=== PATIENT | female | born 1970 ===

== ENCOUNTER 2024-02-01 13:32 | Inpatient (IN) | payer MEDICAID, OTHER ==
[~2024-02-01] VITALS: Ht 154.9 cm; Wt 60.0 kg
[2024-02-01] MEDS ORDERED: FAMO20 PO (14:13)
[2024-02-01 14:40] LABS: COVID AG,FIA SOURCE NASAL SWAB
[2024-02-01 14:45] LABS: BASOPHILS % (AUTO) 0.5 % (0.0-2.0); EOSINOPHILS % (AUTO) 2.1 % (1.0-6.0); HEMOGLOBIN 13.9 g/dL (12.0-16.0); LYMPHOCYTES # (AUTO) 2.6 K/uL (1.0-4.8); LYMPHOCYTES % (AUTO) 31.9 % (22.0-44.0); MEAN CORPUSCULAR HEMOGLOBIN 27.4 pg (26.0-34.0); MEAN CORPUSCULAR HGB CONC 30.8 G/dL (31.0-37.0); MEAN CORPUSCULAR VOLUME 89 fL (80-100); MONOCYTES # (AUTO) 0.3 K/uL (0.1-1.0); MONOCYTES % (AUTO) 3.5 % (2.0-9.0); NEUTROPHILS # (AUTO) 5.1 K/uL (1.8-7.7); PLATELET COUNT (AUTO) 299 K/uL (150-450); RED BLOOD CELL COUNT(AUTO) 5.05 MIL/uL (4.00-5.20); RED CELL DISTRIBUTION WIDTH 20.1 % (11.5-14.5); WHITE BLOOD COUNT (AUTO) 8.3 K/uL (4.5-11.0)
[2024-02-01 14:46] LABS: PH,URINE DRUG SCREEN 6.5 (5.0-8.0)
[2024-02-01 14:53] LABS: ALCOHOL, URINE DRUG SCREEN NEGATIVE (NEGATIVE); AMPHET/METH SCREEN,URINE NEGATIVE (NEGATIVE); BARBITURATE SCREEN, URINE NEGATIVE (NEGATIVE); BENZODIAZEPINES SCREEN,URINE NEGATIVE (NEGATIVE); CANNABINOID SCREEN,URINE NEGATIVE (NEGATIVE); COCAINE SCREEN,URINE NEGATIVE (NEGATIVE); METHADONE SCREEN, URINE NEGATIVE (NEGATIVE); OPIATE SCREEN,URINE NEGATIVE (NEGATIVE); PHENCYCLIDINE SCREEN,URINE NEGATIVE (NEGATIVE)
[2024-02-01 14:56] LABS: ALCOHOL, BLOOD (SERUM) < 3 mg/dL (0-10)
[2024-02-01 15:04] LABS: CHLORIDE 112 mmol/L (98-107); POTASSIUM 5.1 mmol/L (3.5-5.1); SARS-COV2 (COVID) ANTIGEN,FIA Negative (Negative); SODIUM SERUM 143 mmol/L (136-145)
[2024-02-01 15:14] LABS: ANION GAP 5 mmol/L (8-16); CALCIUM, TOTAL 10.9 mg/dL (8.8-10.5); CARBON DIOXIDE 26 mmol/L (22-29); CREATININE 0.66 mg/dL (0.60-1.30); GLOMERULAR FILTR. RATE CALC > 60 mL/min (>60); GLUCOSE,RANDOM 96 mg/dL (70-110); UREA NITROGEN, BLOOD 15 mg/dL (7-18)
[2024-02-02] MEDS: ZOLPIDEM TARTRATE 10 MG TABLET PO PRN (01:36)
[2024-02-02] MEDS: HALOPERIDOL 5 MG TABLET PO PRN (01:36)
[2024-02-02] MEDS: LORazepam 2 MG TABLET PO PRN (01:36)
[2024-02-03] MEDS: LORazepam 2 MG/ML VIAL IM ONE (23:21)
[2024-02-03] MEDS: HALOPERIDOL LACTATE 5 MG/ML VIAL IM ONE (23:21)
[2024-02-04 00:43] VITALS: RESP 18; TEMP 98
[2024-02-04] MEDS ORDERED: PNEUMOCOCCAL VACCINE POLYVALENT 0.5 ML SYRINGE [PPSV23] IM. ONE (02:45)
[2024-02-04 12:00] VITALS: RESP 17; TEMP 97.6
[2024-02-04] MEDS ORDERED: OMEPRAZOLE 20 MG CAPSULE PO PRN (12:00)
[2024-02-04] MEDS ORDERED: BACITRACIN 28 GM OINTMENT TP PRN (12:00)
[2024-02-04] MEDS ORDERED: CloNIDine HCL 0.1 MG TABLET PO PRN (12:00)
[2024-02-04] MEDS ORDERED: MAG HYDROX/ALUMINUM HYD/SIMETH ES 30 ML SUSPENSION UDCUP PO PRN (12:00)
[2024-02-04] MEDS ORDERED: BENZOCAINE/MENTHOL LOZENGE PO PRN (12:00)
[2024-02-04] MEDS ORDERED: ALBUTEROL SULFATE HFA 90 MCG/PUFF 8 GM INHALER IH PRN (12:00)
[2024-02-04] MEDS ORDERED: MAGNESIUM HYDROXIDE SUSPENSION 30 ML UDCUP PO PRN (12:00)
[2024-02-04] MEDS ORDERED: IBUPROFEN 600 MG TABLET PO PRN (12:00)
[2024-02-04] MEDS ORDERED: ACETAMINOPHEN 325 MG TABLET PO PRN (12:00)
[2024-02-04] MEDS ORDERED: DOCUSATE SODIUM 100 MG CAPSULE PO PRN (12:00)
[2024-02-04] MEDS ORDERED: ONDANSETRON 4 MG TABLET PO PRN (12:00)
[2024-02-04] MEDS ORDERED: PETROLATUM,WHITE 28 GM JELLY TP PRN (12:00)
[2024-02-04 14:55] VITALS: BP 95/62; PULSE 104; RESP 18; TEMP 98
[2024-02-05 08:28] VITALS: BP 98/67; PULSE 76; RESP 17; TEMP 98.1
[2024-02-05] MEDS: FAMOTIDINE 20 MG TABLET PO SCH (10:11)
[2024-02-05] MEDS: ETHYL ALCOHOL 62% ANTISEPTIC NASAL SANITIZER 0.6 ML AMPUL NASAL SCH (11:16)
[2024-02-05 21:07] VITALS: BP 105/74; PULSE 98; RESP 18; TEMP 98; O2SAT 97
[2024-02-06 09:16] VITALS: RESP 19
[2024-02-06 21:10] VITALS: BP 102/73; PULSE 74; RESP 18; TEMP 97.1; O2SAT 97
[2024-02-07 08:25] VITALS: BP 121/75; PULSE 78; RESP 18; TEMP 98; O2SAT 98
[2024-02-07 21:23] VITALS: BP 94/69; PULSE 83; RESP 18; TEMP 98; O2SAT 98
[2024-02-08 09:16] VITALS: BP 105/58; PULSE 76; RESP 19; TEMP 98.1; O2SAT 95
[2024-02-08 21:08] VITALS: BP 105/67; PULSE 97; RESP 18; TEMP 98; O2SAT 96
[2024-02-09 09:29] VITALS: BP 81/51; PULSE 84; RESP 18; TEMP 97.5; O2SAT 98
[2024-02-09 21:36] VITALS: BP 98/65; PULSE 77; RESP 18; TEMP 97; O2SAT 96
[2024-02-10 09:14] VITALS: BP 109/60; PULSE 86; RESP 18; TEMP 97.4; O2SAT 95
[2024-02-10 20:58] VITALS: BP 134/79; PULSE 84; RESP 18; TEMP 98.4; O2SAT 97
[2024-02-11 09:29] VITALS: BP 103/53; PULSE 63; RESP 18; TEMP 97; O2SAT 98
[2024-02-11 20:59] VITALS: BP 107/65; PULSE 82; RESP 17; TEMP 98; O2SAT 99
[2024-02-12 13:01] VITALS: RESP 18
[2024-02-12 20:11] VITALS: BP 102/71; PULSE 84; RESP 16; TEMP 97.5; O2SAT 96
[2024-02-13] MEDS: CHLORHEXIDINE GLUCONATE 2% TOWELETTE [2'S/6'S] TP SCH (11:29)
[2024-02-13 13:24] VITALS: BP 93/67; PULSE 87; RESP 17; TEMP 97.5; O2SAT 95
[2024-02-13 20:55] VITALS: BP 100/67; PULSE 80; RESP 18; TEMP 97.8; O2SAT 95
[2024-02-14 10:22] VITALS: BP 92/65; PULSE 79; RESP 17; TEMP 97.6; O2SAT 95
[2024-02-14 20:51] VITALS: BP 95/62; PULSE 76; RESP 18; TEMP 97.3; O2SAT 76
[2024-02-15 09:25] VITALS: RESP 18
[2024-02-15 21:38] VITALS: BP 90/70; PULSE 76; RESP 18; TEMP 97; O2SAT 97
[2024-02-16 08:58] VITALS: BP 100/68; PULSE 78; RESP 17; TEMP 97; O2SAT 98
[2024-02-16 20:16] VITALS: BP 120/63; PULSE 83; RESP 18; TEMP 98; O2SAT 98
[2024-02-17 08:30] VITALS: BP 103/78; PULSE 71; RESP 19; TEMP 97.3; O2SAT 97
[2024-02-17 20:20] VITALS: BP 117/79; PULSE 74; RESP 18; TEMP 97.5; O2SAT 100
[2024-02-18 08:30] VITALS: BP 114/62; PULSE 70; RESP 18; TEMP 96.9; O2SAT 97
[2024-02-18 21:27] VITALS: BP 98/71; PULSE 67; RESP 18; TEMP 97.1; O2SAT 95
[2024-02-19 12:56] VITALS: BP 109/62; PULSE 86; RESP 18; TEMP 97.7; O2SAT 97
[2024-02-19 21:18] VITALS: BP 95/63; PULSE 71; RESP 18; TEMP 97.7; O2SAT 97
[2024-02-20 08:46] VITALS: BP 102/61; PULSE 71; RESP 18; TEMP 97.5; O2SAT 96
[2024-02-20 21:00] VITALS: BP 102/77; PULSE 77; RESP 18; TEMP 97.9; O2SAT 97
[2024-02-21 08:50] VITALS: BP 99/69; PULSE 70; RESP 18; TEMP 97.9; O2SAT 98
[2024-02-21 20:29] VITALS: BP 121/75; PULSE 88; RESP 18; TEMP 97.7; O2SAT 96
[2024-02-22 08:30] VITALS: BP 90/59; PULSE 77; RESP 18; TEMP 97.5; O2SAT 96
[2024-02-22 21:03] VITALS: BP 96/70; PULSE 65; RESP 18; TEMP 97.4; O2SAT 96
[2024-02-23 09:17] VITALS: BP 96/58; PULSE 65; RESP 18; TEMP 96.6; O2SAT 97
[2024-02-23 22:02] VITALS: BP 96/54; PULSE 70; RESP 18; TEMP 97.4
[2024-02-24 10:19] VITALS: RESP 18
[2024-02-24 20:17] VITALS: BP 98/63; PULSE 80; RESP 19; TEMP 97.9; O2SAT 98
[2024-02-25 21:01] VITALS: BP 97/58; PULSE 61; RESP 19; TEMP 97.4; O2SAT 99
[2024-02-26 12:56] VITALS: BP 115/80; PULSE 78; RESP 17; TEMP 98.1; O2SAT 97
[2024-02-26 22:09] VITALS: BP 120/74; PULSE 68; RESP 18; TEMP 96.7; O2SAT 98
[2024-02-27 22:17] VITALS: BP 91/61; PULSE 71; RESP 18; TEMP 98.7; O2SAT 95
[2024-02-28 09:10] VITALS: BP 99/73; PULSE 77; RESP 18; TEMP 97.5; O2SAT 95
[2024-02-28 21:12] VITALS: BP 94/56; PULSE 76; RESP 18; TEMP 97.8; O2SAT 96
[2024-02-29 08:28] VITALS: BP 107/84; PULSE 68; RESP 18; TEMP 96.6; O2SAT 100
[2024-02-29 20:21] VITALS: BP 105/63; PULSE 70; RESP 17; TEMP 97.1; O2SAT 96
[2024-02-29 20:23] VITALS: BP 105/63; PULSE 70; RESP 18; TEMP 97.1; O2SAT 96
[2024-03-01 09:04] VITALS: BP 93/62; PULSE 70; RESP 19; TEMP 97.4; O2SAT 96
[2024-03-01 21:22] VITALS: BP 87/59; PULSE 68; RESP 18; TEMP 97.6; O2SAT 96
[2024-03-02 20:19] VITALS: BP 105/73; PULSE 73; RESP 18; TEMP 97.9; O2SAT 98
[2024-03-03 10:27] VITALS: BP 110/70; PULSE 80; RESP 17; TEMP 98; O2SAT 98
[2024-03-03 20:44] VITALS: RESP 18
[2024-03-04 08:30] VITALS: BP 99/56; PULSE 74; RESP 17; TEMP 97.5; O2SAT 94
[2024-03-04 20:41] VITALS: BP 108/77; PULSE 77; RESP 18; TEMP 97.3; O2SAT 97
[2024-03-05 09:13] VITALS: BP 109/73; PULSE 70; RESP 18; TEMP 97.3; O2SAT 96
[2024-03-05 21:08] VITALS: BP 139/84; PULSE 74; RESP 18; TEMP 97.5; O2SAT 97
[2024-03-06 09:24] VITALS: BP 121/75; PULSE 79; RESP 17; TEMP 97.8; O2SAT 97
[2024-03-06 21:04] VITALS: BP 103/73; PULSE 70; RESP 18; TEMP 97; O2SAT 96
[2024-03-07 09:08] VITALS: BP 101/60; PULSE 63; RESP 17; TEMP 97.7; O2SAT 97
[2024-03-07 22:05] VITALS: RESP 18
[2024-03-08 08:32] VITALS: RESP 18
[2024-03-08 09:29] VITALS: BP 123/73; PULSE 80; RESP 17; TEMP 98; O2SAT 96
[2024-03-08 20:09] VITALS: BP 97/43; PULSE 76; RESP 18; TEMP 97; O2SAT 100
[2024-03-09 09:35] VITALS: BP 102/60; PULSE 90; RESP 16; TEMP 97; O2SAT 96
[2024-03-09 21:12] VITALS: BP 111/77; PULSE 84; RESP 18; TEMP 97.3; O2SAT 98
[2024-03-10 07:47] LABS: APPEARANCE,URINE HAZY (CLEAR); BILIRUBIN,URINE NEGATIVE (NEGATIVE); COLOR,URINE LIGHT YELLOW (YELLOW); GLUCOSE, URINE (UA) NEGATIVE (NEGATIVE); KETONES,URINE NEGATIVE (NEGATIVE); LEUKOCYTE ESTERASE ,URINE LARGE (NEGATIVE); NITRATE,URINE NEGATIVE (NEGATIVE); OCCULT BLOOD,URINE NEGATIVE (NEGATIVE); PROTEIN,URINE NEGATIVE (NEGATIVE); UROBILINOGEN,URINE <=1.0 mg/dL (<=1.0)
[2024-03-10 07:48] LABS: AMPHET/METH SCREEN,URINE NEGATIVE (NEGATIVE); BARBITURATE SCREEN, URINE NEGATIVE (NEGATIVE); BENZODIAZEPINES SCREEN,URINE NEGATIVE (NEGATIVE); CANNABINOID SCREEN,URINE NEGATIVE (NEGATIVE); COCAINE SCREEN,URINE NEGATIVE (NEGATIVE); METHADONE SCREEN, URINE NEGATIVE (NEGATIVE); OPIATE SCREEN,URINE NEGATIVE (NEGATIVE); PHENCYCLIDINE SCREEN,URINE NEGATIVE (NEGATIVE)
[2024-03-10 07:59] LABS: BACTERIA,URINE Many /HPF (None Seen); RBC,URINE 0-2 /HPF (0-2); SQUAMOUS EPITHELIAL CELL,UR Moderate /LPF (None Seen); WBC,URINE >100 /HPF (0-5)
[2024-03-10 08:24] LABS: ALCOHOL, URINE DRUG SCREEN NEGATIVE (NEGATIVE)
[2024-03-10 09:12] VITALS: BP 90/60; PULSE 64; RESP 17; TEMP 97.2; O2SAT 98
[2024-03-10 21:09] VITALS: BP 93/64; PULSE 68; RESP 19; TEMP 96.1; O2SAT 92
[2024-03-11 08:42] VITALS: BP 125/75; PULSE 80; RESP 16; TEMP 97.9; O2SAT 96
[2024-03-11] MEDS: CEPHALEXIN MONOHYDRATE 500 MG CAPSULE PO SCH (10:08)
[2024-03-11 21:57] VITALS: BP 96/60; PULSE 72; RESP 18; TEMP 97; O2SAT 100
[2024-03-12 08:00] VITALS: BP 111/72; PULSE 72; RESP 17; O2SAT 95
[2024-03-12 20:53] VITALS: BP 95/66; PULSE 68; RESP 18; TEMP 97.3; O2SAT 97
[2024-03-13 09:44] VITALS: BP 100/69; PULSE 80; RESP 18; TEMP 98.9; O2SAT 98
[2024-03-13] MEDS: LOPERAMIDE HCL 2 MG CAPSULE PO PRN (15:31)
[2024-03-13 20:35] VITALS: BP 92/64; PULSE 77; RESP 18; TEMP 97.6
[2024-03-14 09:19] VITALS: BP 96/55; PULSE 85; RESP 17; TEMP 97.3; O2SAT 100
[2024-03-14 20:03] VITALS: BP 98/59; PULSE 77; RESP 16; TEMP 97.2; O2SAT 98
[2024-03-15 12:42] VITALS: BP 102/64; PULSE 68; RESP 18; TEMP 97.6; O2SAT 96
[2024-03-15 21:41] VITALS: BP 100/59; PULSE 73; RESP 20; TEMP 96.8; O2SAT 97
[2024-03-16 08:41] VITALS: BP 107/62; PULSE 79; RESP 17; TEMP 96.7; O2SAT 85
[2024-03-16 09:42] LABS: ANION GAP 10 mmol/L (8-16); CALCIUM, TOTAL 10.5 mg/dL (8.8-10.5); CARBON DIOXIDE 24 mmol/L (22-29); CHLORIDE 110 mmol/L (98-107); CREATININE 0.63 mg/dL (0.60-1.30); GLOMERULAR FILTR. RATE CALC > 60 mL/min (>60); GLUCOSE,RANDOM 90 mg/dL (70-110); POTASSIUM 3.6 mmol/L (3.5-5.1); SODIUM SERUM 144 mmol/L (136-145); UREA NITROGEN, BLOOD 13 mg/dL (7-18)
[2024-03-16 09:58] LABS: BASOPHILS % (AUTO) 0.6 % (0.0-2.0); EOSINOPHILS % (AUTO) 2.1 % (1.0-6.0); HEMATOCRIT 49.4 % (36-46); HEMOGLOBIN 15.3 g/dL (12.0-16.0); LYMPHOCYTES # (AUTO) 2.7 K/uL (1.0-4.8); LYMPHOCYTES % (AUTO) 27.2 % (22.0-44.0); MEAN CORPUSCULAR HEMOGLOBIN 28.1 pg (26.0-34.0); MEAN CORPUSCULAR VOLUME 91 fL (80-100); MONOCYTES # (AUTO) 0.4 K/uL (0.1-1.0); MONOCYTES % (AUTO) 4.4 % (2.0-9.0); NEUTROPHILS # (AUTO) 6.6 K/uL (1.8-7.7); NEUTROPHILS % (AUTO) 65.7 % (40.0-70.0); PLATELET COUNT (AUTO) 287 K/uL (150-450); RED BLOOD CELL COUNT(AUTO) 5.45 MIL/uL (4.00-5.20); RED CELL DISTRIBUTION WIDTH 17.4 % (11.5-14.5)
[2024-03-16 20:28] VITALS: BP 109/79; PULSE 76; RESP 18; TEMP 97.1; O2SAT 98
[2024-03-17 09:12] VITALS: BP 133/79; PULSE 80; RESP 18; TEMP 97.6; O2SAT 97
[2024-03-17 20:45] VITALS: BP 90/60; PULSE 74; RESP 18; TEMP 97.9; O2SAT 98
[2024-03-18 09:00] VITALS: BP 140/85; PULSE 77; RESP 16; TEMP 97.6; O2SAT 98
[2024-03-18 21:51] VITALS: BP 100/62; PULSE 73; RESP 18; TEMP 98.2; O2SAT 98
[2024-03-19 09:15] VITALS: BP 131/98; PULSE 98; RESP 18; TEMP 97.5; O2SAT 98
[2024-03-19 22:45] VITALS: BP 94/54; PULSE 77; RESP 18; TEMP 97.6; O2SAT 97
[2024-03-20 09:40] VITALS: BP 99/64; PULSE 74; RESP 18; TEMP 97.4; O2SAT 95
[2024-03-20 20:26] VITALS: RESP 18; O2SAT 96
[2024-03-21 10:50] VITALS: BP 103/61; PULSE 79; RESP 17; TEMP 97.9; O2SAT 98
[2024-03-21 21:20] VITALS: BP 149/69; PULSE 87; RESP 18; TEMP 97.5; O2SAT 95
[2024-03-22 09:46] VITALS: BP 130/70; PULSE 77; RESP 17; TEMP 98; O2SAT 96
[2024-03-22 20:25] VITALS: BP 104/67; PULSE 77; RESP 18; TEMP 97.2; O2SAT 98
[2024-03-23 15:39] VITALS: BP 117/70; PULSE 69; RESP 17; TEMP 98; O2SAT 99
[2024-03-23 21:55] VITALS: BP 132/80; PULSE 83; RESP 18; TEMP 97.7; O2SAT 99
[2024-03-24 08:41] VITALS: BP 106/68; PULSE 90; RESP 18; O2SAT 95
[2024-03-24 21:58] VITALS: RESP 18
[2024-03-25 09:51] VITALS: BP 117/72; PULSE 73; RESP 17; TEMP 97.4
[2024-03-25] MEDS ORDERED: FAMO20 PO (10:13)
== END 2024-03-25 15:35 | disposition home or self-care (01) | DRG 750 ==
LOC: EMS 13:41 → 3EC 02-04 00:16 → 3EI 02-05 16:33
PROVIDERS: ADMIT Psychiatry & Neurology Psychiatry; ATTEND Psychiatry & Neurology Psychiatry
PROC: GZHZZZZ Group Psychotherapy (ICD-10-PCS; principal; 2024-02-05)
PROC: GZ51ZZZ Individual Psychotherapy, Behavioral (ICD-10-PCS; 2024-02-05)
DX: F25.0 Schizoaffective disorder, bipolar type (principal); D57.1 Sickle-cell disease without crisis; F41.9 Anxiety disorder, unspecified; G47.00 Insomnia, unspecified; Z20.822 Contact with and (suspected) exposure to COVID-19; N39.0 Urinary tract infection, site not specified; K59.00 Constipation, unspecified; K21.9 Gastro-esophageal reflux disease without esophagitis; I73.9 Peripheral vascular disease, unspecified; E21.3 Hyperparathyroidism, unspecified; Z85.43 Personal history of malignant neoplasm of ovary
CPT/HCPCS: 80048; 80307; 81001; 85025; 87081; 87086; 87186; 97116; 97161; 97166; 97530; 97535; 99285; G0480